=== PATIENT | male | born 1980 | race Caucasian/White ===

== ENCOUNTER 2022-03-02 15:59 | Emergency (ER) | payer SELFPAY ==
[~2022-03-02] VITALS: Ht 165.1 cm; Wt 82.0 kg
[2022-03-02 16:04] VITALS: BP 107/67
== END 2022-03-02 17:13 | disposition left against medical advice (07) ==
LOC: ER 15:59
DX: Z53.21 Procedure and treatment not carried out due to patient leaving prior to being seen by health care provider (principal)